=== PATIENT | male | born 1950 | race Caucasian/White ===

== ENCOUNTER → 2016-10-27 | Outpatient (CLI) | payer OTHER ==
[~2016-10-27] VITALS: Ht 177.8 cm; Wt 102.1 kg
[~2016-10-27] MED LIST: COREG25 MG PO; HUMALOG100 UNIT/2 SQ; LEVEMIR SUBQ; METFORMIN HCL500 MG PO; NORVASC10 MG PO; PROAIR HFA8.5 GM INH; ZESTORETIC 20-1 EAC3 PO
--- NOTE | ~2016-10-27 | S ---
[facility] [place] [address] SURGICAL PATH RPT PROCEDURE Name: GHANSHYAM COLLIER [facility] #: [facility] [id number] Admission: 10/27/16 Date of : 50 Discharge: Report #: [id number] Path Case #: [id number] PATHOLOGY REPORT COLLECTION DATE: 10/27/2016 RECEIVED DATE: 10/27/2016 SUBMITTING PHYS: Dr. Juice Sanchez OTHER PHYS: Dr. Yusuf Aburto, III SPECIMEN(S) RECEIVED: A.Distal esophagus B.Esophageal bx C.Descending colon polyp D.Polyp at sigmoid colon * * * * * * * * * * * * FINAL DIAGNOSIS: A. Gastric fundic-type mucosa, distal esophagus, endoscopic biopsy: - Specialized columnar epithelium with intestinal metaplasia, consistent with Abbott's metaplasia. - Negative for dysplasia. B. Squamous mucosa, esophageal, endoscopic biopsy: - Moderate active esophagitis with numerous eosinophils (up to 50/hpf), please see comment. - Negative for dysplasia or metaplasia. C. Polyp, descending colon polyp, endoscopic biopsy: - Tubular adenoma. - Negative for high-grade dysplasia. D. Polyp, at sigmoid colon, endoscopic biopsy: - Hyperplastic polyp. - Negative for dysplasia. COMMENT: Part B: Examination of the esophageal biopsy tissue shows squamous mucosa with a marked number of intraepithelial eosinophils. Although eosinophils are commonly encountered in inflammation due to reflux esophagitis, the eosinophils in the present specimen are numerous, exceeding up to 50/hpf. Apart from reflux esophagitis, potential etiologies for the histologic pattern include allergic and collagen vascular diseases, fungal or parasitic infections, and eosinophilic esophagitis (idiopathic). Please correlate with clinical and endoscopic findings. Part A only co-reviewed by Dr. Edgard Watts. (IUV:mgr; 10/29/2016) PATHOLOGIST: Samaria Dimas M.D. REPORT ELECTRONICALLY SIGNED BY: [place]aria [place] [address] SURGICAL PATH RPT PROCEDURE Name: GHANSHYAM COLLIER Room #: [facility]#: [id number] Admission: 10/27/16 Date of : 50 Discharge: Report #: [id number] Path Case #: [id number] DATE/TIME: 10/29/2016 16:35 * * * * * * * * * * * * GROSS PATHOLOGY: A. Received in formalin labeled "Ghanshyam Collier, distal esophageal BX," are 2 segments of beck soft tissue measuring 0.9 x 0.2 x 0.2 cm in aggregate dimensions and ranging from 0.3 to 0.6 cm in maximum dimension. The specimen is submitted entirely in cassette A1. B. Received in formalin labeled "Ghanshyam Collier, esophageal BX," are 4 segments of white to beck soft tissue measuring 1.1 x 0.2 x 0.2 cm in aggregate dimensions and ranging from 0.2 to 0.3 cm in maximum dimension. The specimen is submitted entirely in cassette B1. C. Received in formalin labeled "Ghanshyam Collier, descending colon polyp," are 2 segments of beck soft tissue measuring 0.5 x 0.2 x 0.2 cm in aggregate dimensions and ranging from 0.2 to 0.3 cm in maximum dimension. The specimen is submitted entirely in cassette C1. D. Received in formalin labeled "Ghanshyam Collier, polyp at sigmoid colon," are 2 segments of beck soft tissue measuring 0.6 x 0.3 x 0.2 cm in aggregate dimensions and ranging from 0.3 to 0.3 cm in maximum dimension. The specimen is submitted entirely in cassette D1. (ERIC; 10/28/2016) CLINICAL HISTORY: History of Abbott's, history of polyps INITIAL CPT CODE(S): A; 48705 B; 08582 C; 19473 D; 21012 Professional services performed by [facility] at [facility] [address], [place] [address] Technical services performed by [facility] at [address] [place] [address], [address], [place] [address]. [facility] [place] [place] [address] PHONE: [phone] DIRECTOR: James Crawford M.D. * * * END OF REPORT * * *
== END ==
LOC: GI 07:14
DX: Z09 Encounter for follow-up examination after completed treatment for conditions other than malignant neoplasm (principal); Z86.010 Personal history of colon polyps; K22.70 Barrett's esophagus without dysplasia; K57.30 Diverticulosis of large intestine without perforation or abscess without bleeding; D12.4 Benign neoplasm of descending colon; D12.5 Benign neoplasm of sigmoid colon
CPT/HCPCS: 62110; 62900